=== PATIENT | male | born 1940 | race Caucasian/White ===

== ENCOUNTER 2019-08-17 08:57 | Inpatient (IN) ==
[2019-08-17 09:34] LABS: Basophils # 0.1 K/mcL (0.0-0.2); Basophils % 0.7 %; Eosinophils # 0.2 K/mcL (0.0-0.6); Eosinophils % 2.8 %; Hematocrit 41.2 % (37.5-50.1); Immature Granulocytes % 0.4 % (0-4); Lymphocytes # 1.9 K/mcL (0.6-4.6); Lymphocytes % 27.9 %; Mean Corpuscular HGB Conc 31.6 g/dL (31.6-35.5); Mean Corpuscular Hemoglobin 27.6 pg (28.0-33.3); Mean Corpuscular Volume 87.5 fL (83.0-100.0); Mean Platelet Volume 9.2 fL (9.4-12.4); Monocytes # 0.5 K/mcL (0.0-1.3); Monocytes % 7.1 %; Neutrophils # 4.1 K/mcL (1.6-8.9); Platelet Count 244 K/mcL (140-400); Red Blood Count 4.71 M/mcL (4.19-5.50); Red Cell Distribution Width 13.8 % (11.5-14.5); Segmented Neutrophils % 61.1 %; White Blood Count 6.8 K/mcL (4.3-11.1)
[2019-08-17 09:35] LABS: INR 2.9; Prothrombin Time 32.9 Seconds (9.4-12.1)
[2019-08-17 09:52] LABS: Alanine Aminotransferase 16 Units/L (7-52); Albumin 4.1 g/dL (3.5-5.7); Albumin/Globulin Ratio 1.6 (1.1-2.2); Alkaline Phosphatase 66 Units/L (34-104); Aspartate Amino Transferase 22 Units/L (13-39); BUN/Creatinine Ratio 15 (6-26); Bilirubin,Direct 0.1 mg/dL (0.0-0.2); Bilirubin,Indirect 0.4 mg/dL (0.0-1.0); Bilirubin,Total 0.5 mg/dL (0.3-1.0); Blood Urea Nitrogen 14 mg/dL (8-23); Calcium 9.1 mg/dL (8.6-10.3); Carbon Dioxide 25 mEq/L (23-29); Chloride 107 mEq/L (98-107); Globulin 2.6 g/dL (2.4-3.5); Glucose 130 mg/dL (70-105); Osmolality,Calculated 292 (280-300); Potassium 3.9 mEq/L (3.5-5.1); Sodium 140 mEq/L (136-145); Total Protein 6.7 g/dL (6.4-8.9); eGFR For African Americans > 60 (> 60); eGFR For Non-African Americans > 60 (> 60)
[2019-08-17] MEDS ORDERED: Pantoprazole 40 MG VIAL IVP ONE (10:00)
[2019-08-17] MEDS ORDERED: *HR* Phytonadione 5 MG TABLET PO ONE (11:33)
[2019-08-17] MEDS ORDERED: Naloxone 0.4 MG/ML INJ IVP PRN ×3 (11:34→20:59)
[2019-08-17] MEDS ORDERED: Isovue-370 500 ML BOTTLE IVP ONE (11:45)
[2019-08-17 12:44] LABS: Basophils # 0.1 K/mcL (0.0-0.2); Basophils % 0.6 %; Eosinophils # 0.1 K/mcL (0.0-0.6); Eosinophils % 1.1 %; Hemoglobin 11.7 g/dL (12.9-16.9); Immature Granulocytes % 0.6 % (0-4); Lymphocytes # 1.8 K/mcL (0.6-4.6); Lymphocytes % 20.8 %; Mean Corpuscular HGB Conc 31.6 g/dL (31.6-35.5); Mean Corpuscular Hemoglobin 28.3 pg (28.0-33.3); Mean Corpuscular Volume 89.4 fL (83.0-100.0); Mean Platelet Volume 9.4 fL (9.4-12.4); Monocytes # 0.5 K/mcL (0.0-1.3); Monocytes % 5.5 %; Neutrophils # 6.3 K/mcL (1.6-8.9); Platelet Count 228 K/mcL (140-400); Red Blood Count 4.14 M/mcL (4.19-5.50); Red Cell Distribution Width 13.9 % (11.5-14.5); Segmented Neutrophils % 71.4 %; White Blood Count 8.8 K/mcL (4.3-11.1)
[2019-08-17] MEDS ORDERED: 0.9 % Sodium Chloride 1,000 ML IVC ONE (13:06)
[2019-08-17] MEDS ORDERED: 0.9 % Sodium Chloride 250 ML IVC SCH ×3 (13:15→20:59)
[2019-08-17] MEDS: Pantoprazole 40 MG in 0.9 % Sodium Chloride Mini Bag 100 ML IVC SCH ×3 (13:17→21:25)
[2019-08-17] MEDS: Ringers Solution, Lactated 1,000 ML IVC SCH ×2 (13:18→15:01)
[2019-08-17 13:39] LABS: Hematocrit 36.4 % (37.5-50.1); Hemoglobin 11.2 g/dL (12.9-16.9)
[2019-08-17] MEDS ORDERED: Ondansetron 4 MG/2 ML VIAL IVP ONE (16:27)
[2019-08-17] MEDS ORDERED: SODIUM CHLORIDE/NAHCO3/KCL/PEG 4,000 ML SOLN.RECON PO ONE (17:00)
[2019-08-17] MEDS ORDERED: Pantoprazole 40 MG in 0.9 % Sodium Chloride Mini Bag 100 ML IVC SCH (18:00)
[2019-08-17] MEDS ORDERED: Ringers Solution, Lactated 1,000 ML IVC SCH ×2 (18:00→20:59)
[2019-08-17 18:08] LABS: Hematocrit 23.6 % (37.5-50.1)
[2019-08-17 18:13] LABS: Hemoglobin 7.6 g/dL (12.9-16.9)
[2019-08-17 18:18] LABS: VBG Ionized Calcium 1.12 mmol/L (1.15-1.35)
[2019-08-17] MEDS ORDERED: *HR* Phytonadione 10 MG/ML AMPUL SQ ONE ×2 (18:20→20:59)
[2019-08-17] MEDS ORDERED: *HR* FentaNYL (PF) 100 MCG/2 ML VIAL ONE (18:21)
[2019-08-17] MEDS ORDERED: *HR* Midazolam HCl 2 MG/2 ML VIAL ONE (18:21)
[2019-08-17] MEDS ORDERED: Ketorolac 30 MG/ML VIAL ONE (18:21)
[2019-08-17] MEDS ORDERED: Dexamethasone 4 MG/ML VIAL ONE (18:21)
[2019-08-17] MEDS ORDERED: *HR* Propofol 200 MG/20 ML VIAL IVP ONE (18:21)
[2019-08-17] MEDS ORDERED: Lidocaine -MPF 2% 2 ML VIAL ONE (18:21)
[2019-08-17] MEDS ORDERED: *HR* Rocuronium Bromide 50 MG/5 ML VIAL ONE (18:21)
[2019-08-17] MEDS ORDERED: Ondansetron 4 MG/2 ML VIAL ONE (18:21)
[2019-08-17] MEDS ORDERED: EPHEDrine 50 MG/ML VIAL ONE (18:49)
[2019-08-17] MEDS ORDERED: Albumin Human 5% 12.5 GM/250 ML IV.SOLN ONE (19:43)
[2019-08-17] MEDS ORDERED: *HR* HYDROMORPHONE 2 MG/ML VIAL ONE (19:56)
[2019-08-17] MEDS ORDERED: *HR* FentaNYL (PF) 100 MCG/2 ML VIAL IVP PRN (20:59)
[2019-08-17 22:20] LABS: Hematocrit 28.4 % (37.5-50.1); Hemoglobin 9.3 g/dL (12.9-16.9)
[2019-08-17] MEDS ORDERED: Haloperidol Lactate 5 MG/ML VIAL IVP ONE (23:35)
[2019-08-17] MEDS: Acetaminophen IV 1,000 MG/100 ML INFUS..BTL IVPB SCH (23:53)
[2019-08-17] MEDS: ceFAZolin 2,000 MG in 0.9 % Sodium Chloride 100 ML IVPB SCH (23:54)
[2019-08-18] MEDS ORDERED: Haloperidol Lactate 5 MG/ML VIAL IVP ONE (02:52)
[2019-08-18] MEDS: Pantoprazole 40 MG in 0.9 % Sodium Chloride Mini Bag 100 ML IVC SCH ×2 (02:53→07:54)
[2019-08-18 03:30] LABS: Basophils % 0.1 %; Hematocrit 26.4 % (37.5-50.1); Hemoglobin 8.9 g/dL (12.9-16.9); Immature Granulocytes % 0.4 % (0-4); Lymphocytes # 0.6 K/mcL (0.6-4.6); Mean Corpuscular HGB Conc 33.7 g/dL (31.6-35.5); Mean Corpuscular Hemoglobin 29.5 pg (28.0-33.3); Mean Corpuscular Volume 87.4 fL (83.0-100.0); Mean Platelet Volume 9.5 fL (9.4-12.4); Monocytes # 0.7 K/mcL (0.0-1.3); Monocytes % 4.5 %; Neutrophils # 13.8 K/mcL (1.6-8.9); Platelet Count 121 K/mcL (140-400); Red Blood Count 3.02 M/mcL (4.19-5.50); Red Cell Distribution Width 13.6 % (11.5-14.5); White Blood Count 15.2 K/mcL (4.3-11.1)
[2019-08-18 03:35] LABS: INR 2.5; Prothrombin Time 28.3 Seconds (9.4-12.1)
[2019-08-18 03:49] LABS: Alanine Aminotransferase 11 Units/L (7-52); Albumin 3.3 g/dL (3.5-5.7); Albumin/Globulin Ratio 1.9 (1.1-2.2); Alkaline Phosphatase 42 Units/L (34-104); Aspartate Amino Transferase 19 Units/L (13-39); BUN/Creatinine Ratio 13 (6-26); Bilirubin,Total 1.2 mg/dL (0.3-1.0); Blood Urea Nitrogen 9 mg/dL (8-23); Calcium 7.8 mg/dL (8.6-10.3); Carbon Dioxide 23 mEq/L (23-29); Chloride 107 mEq/L (98-107); Chol/HDL Ratio 2.8 (0-4.9); Cholesterol 108 mg/dL (< 200); Globulin 1.7 g/dL (2.4-3.5); Glucose 169 mg/dL (70-105); HDL Cholesterol 39 mg/dL (40-59); LDL Cholesterol,Calculated 55 mg/dL (0-99); Magnesium 1.5 mg/dL (1.6-2.6); Osmolality,Calculated 291 (280-300); Phosphorous 2.6 mg/dL (2.7-4.5); Potassium 3.6 mEq/L (3.5-5.1); Sodium 139 mEq/L (136-145); Triglycerides 71 mg/dL (< 150); eGFR For African Americans > 60 (> 60); eGFR For Non-African Americans > 60 (> 60)
[2019-08-18] MEDS: Acetaminophen IV 1,000 MG/100 ML INFUS..BTL IVPB SCH ×4 (05:44→23:33)
[2019-08-18] MEDS ORDERED: Pantoprazole 40 MG VIAL IVP SCH (06:00)
[2019-08-18] MEDS ORDERED: *HR* Heparin 5,000 UNIT/ML VIAL SQ SCH (06:00)
[2019-08-18] MEDS: ceFAZolin 2,000 MG in 0.9 % Sodium Chloride 100 ML IVPB SCH ×2 (08:36→16:28)
[2019-08-18] MEDS ORDERED: Metoprolol XL (24 HR) Succ 25 MG TAB.ER.24H PO SCH (09:00)
[2019-08-18 11:55] LABS: Hematocrit 25.7 % (37.5-50.1); Hemoglobin 8.7 g/dL (12.9-16.9)
[2019-08-18] MEDS ORDERED: Naloxone 0.4 MG/ML INJ IVP PRN (17:05)
[2019-08-18] MEDS: *HR* Heparin 5,000 UNIT/ML VIAL SQ SCH (18:53)
[2019-08-18] MEDS: Melatonin 3 MG TABLET PO SCH (20:08)
[2019-08-19] MEDS ORDERED: *HR* LORazepam 2 MG/ML VIAL IVP ONE (02:43)
[2019-08-19] MEDS ORDERED: Haloperidol Lactate 5 MG/ML VIAL IVP ONE (04:18)
[2019-08-19] MEDS: *HR* Heparin 5,000 UNIT/ML VIAL SQ SCH ×2 (04:25→17:31)
[2019-08-19] MEDS: Acetaminophen IV 1,000 MG/100 ML INFUS..BTL IVPB SCH (05:18)
[2019-08-19 08:31] LABS: Basophils % 0.2 %; Eosinophils % 0.1 %; Hematocrit 26.5 % (37.5-50.1); Hemoglobin 8.7 g/dL (12.9-16.9); Immature Granulocytes % 1.2 % (0-4); Lymphocytes # 1.7 K/mcL (0.6-4.6); Lymphocytes % 8.4 %; Mean Corpuscular HGB Conc 32.8 g/dL (31.6-35.5); Mean Corpuscular Hemoglobin 28.7 pg (28.0-33.3); Mean Corpuscular Volume 87.5 fL (83.0-100.0); Mean Platelet Volume 9.7 fL (9.4-12.4); Monocytes # 1.1 K/mcL (0.0-1.3); Monocytes % 5.5 %; Platelet Count 160 K/mcL (140-400); Red Blood Count 3.03 M/mcL (4.19-5.50); Red Cell Distribution Width 14.1 % (11.5-14.5); Segmented Neutrophils % 84.6 %
[2019-08-19 08:42] LABS: BUN/Creatinine Ratio 15 (6-26); Blood Urea Nitrogen 12 mg/dL (8-23); Calcium 8.7 mg/dL (8.6-10.3); Carbon Dioxide 26 mEq/L (23-29); Chloride 108 mEq/L (98-107); Glucose 116 mg/dL (70-105); Magnesium 2.1 mg/dL (1.6-2.6); Osmolality,Calculated 291 (280-300); Phosphorous 1.9 mg/dL (2.7-4.5); Potassium 3.7 mEq/L (3.5-5.1); Sodium 140 mEq/L (136-145); eGFR For African Americans > 60 (> 60); eGFR For Non-African Americans > 60 (> 60)
[2019-08-19] MEDS ORDERED: Pantoprazole 40 MG VIAL IVP SCH (09:00)
[2019-08-19] MEDS: Pantoprazole 40 MG VIAL IVP SCH (09:30)
[2019-08-19] MEDS: Metoprolol XL (24 HR) Succ 25 MG TAB.ER.24H PO SCH (09:30)
[2019-08-19] MEDS ORDERED: Acetaminophen 325 MG TABLET PO PRN (11:33)
[2019-08-19] MEDS ORDERED: *HR* OxyCODONE/APAP 5/325 TABLET PO ONE (11:51)
[2019-08-19 13:04] LABS: Bilirubin,Urine Negative (Negative); Blood,Urine Negative (Negative); Clarity,Urine Clear (Clear); Color,Urine Yellow (Yellow); Glucose,Urine (UA) Normal (Normal); Ketones,Urine Negative (Negative); Leukocyte Esterase,Urine Negative (Negative); Nitrite,Urine Negative (Negative); PH,Urine 7.5 pH Units (5.0-8.0); Protein,Urine Negative (Neg-Trace); Specific Gravity,Urine 1.014 (1.010-1.025); Urobilinogen,Urine Normal (Normal)
[2019-08-19 13:44] LABS: Hematocrit 28.4 % (37.5-50.1); Hemoglobin 9.1 g/dL (12.9-16.9)
[2019-08-19] MEDS ORDERED: QUEtiapine Fumarate 25 MG TABLET PO SCH (21:00)
[2019-08-19] MEDS: Melatonin 3 MG TABLET PO SCH (21:18)
[2019-08-19] MEDS: QUEtiapine Fumarate 25 MG TABLET PO SCH (21:19)
[2019-08-20] MEDS: *HR* Heparin 5,000 UNIT/ML VIAL SQ SCH ×2 (05:19→17:57)
[2019-08-20 06:05] LABS: Basophils % 0.2 %; Eosinophils # 0.1 K/mcL (0.0-0.6); Eosinophils % 0.9 %; Hemoglobin 8.4 g/dL (12.9-16.9); Immature Granulocytes % 0.5 % (0-4); Lymphocytes # 1.8 K/mcL (0.6-4.6); Lymphocytes % 14.5 %; Mean Corpuscular HGB Conc 31.1 g/dL (31.6-35.5); Mean Corpuscular Hemoglobin 28.5 pg (28.0-33.3); Mean Corpuscular Volume 91.5 fL (83.0-100.0); Mean Platelet Volume 9.4 fL (9.4-12.4); Monocytes # 0.7 K/mcL (0.0-1.3); Monocytes % 5.9 %; Neutrophils # 9.6 K/mcL (1.6-8.9); Platelet Count 178 K/mcL (140-400); Red Blood Count 2.95 M/mcL (4.19-5.50); Red Cell Distribution Width 14.2 % (11.5-14.5); White Blood Count 12.2 K/mcL (4.3-11.1)
[2019-08-20 06:23] LABS: BUN/Creatinine Ratio 18 (6-26); Blood Urea Nitrogen 14 mg/dL (8-23); Calcium 8.6 mg/dL (8.6-10.3); Carbon Dioxide 26 mEq/L (23-29); Chloride 110 mEq/L (98-107); Glucose 101 mg/dL (70-105); Magnesium 2.2 mg/dL (1.6-2.6); Osmolality,Calculated 295 (280-300); Phosphorous 2.8 mg/dL (2.7-4.5); Potassium 3.8 mEq/L (3.5-5.1); Sodium 142 mEq/L (136-145); eGFR For African Americans > 60 (> 60); eGFR For Non-African Americans > 60 (> 60)
[2019-08-20] MEDS: Pantoprazole 40 MG VIAL IVP SCH (09:27)
[2019-08-20] MEDS: Metoprolol XL (24 HR) Succ 25 MG TAB.ER.24H PO SCH (09:27)
[2019-08-20] MEDS: Melatonin 3 MG TABLET PO SCH (21:32)
[2019-08-20] MEDS: QUEtiapine Fumarate 25 MG TABLET PO SCH (21:32)
[2019-08-21 04:09] LABS: Basophils % 0.2 %; Eosinophils # 0.3 K/mcL (0.0-0.6); Eosinophils % 3.4 %; Hematocrit 25.6 % (37.5-50.1); Hemoglobin 8.1 g/dL (12.9-16.9); Immature Granulocytes % 0.8 % (0-4); Lymphocytes # 1.6 K/mcL (0.6-4.6); Lymphocytes % 18.3 %; Mean Corpuscular HGB Conc 31.6 g/dL (31.6-35.5); Mean Corpuscular Hemoglobin 28.8 pg (28.0-33.3); Mean Corpuscular Volume 91.1 fL (83.0-100.0); Mean Platelet Volume 9.3 fL (9.4-12.4); Monocytes # 0.5 K/mcL (0.0-1.3); Monocytes % 5.4 %; Neutrophils # 6.2 K/mcL (1.6-8.9); Platelet Count 194 K/mcL (140-400); Red Blood Count 2.81 M/mcL (4.19-5.50); Red Cell Distribution Width 13.9 % (11.5-14.5); Segmented Neutrophils % 71.9 %; White Blood Count 8.6 K/mcL (4.3-11.1)
[2019-08-21 04:30] LABS: BUN/Creatinine Ratio 14 (6-26); Blood Urea Nitrogen 9 mg/dL (8-23); Calcium 8.1 mg/dL (8.6-10.3); Carbon Dioxide 28 mEq/L (23-29); Chloride 107 mEq/L (98-107); Glucose 97 mg/dL (70-105); Magnesium 1.8 mg/dL (1.6-2.6); Osmolality,Calculated 291 (280-300); Potassium 3.3 mEq/L (3.5-5.1); Sodium 141 mEq/L (136-145); eGFR For African Americans > 60 (> 60); eGFR For Non-African Americans > 60 (> 60)
[2019-08-21] MEDS: *HR* Heparin 5,000 UNIT/ML VIAL SQ SCH (05:27)
[2019-08-21] MEDS ORDERED: Potassium Chloride Elixir 20 MEQ/15 ML UDC PO ONE (07:52)
[2019-08-21] MEDS: Metoprolol XL (24 HR) Succ 25 MG TAB.ER.24H PO SCH (08:35)
[2019-08-21] MEDS: Pantoprazole 40 MG VIAL IVP SCH (08:36)
[2019-08-21] MEDS: QUEtiapine Fumarate 25 MG TABLET PO SCH (21:31)
[2019-08-21] MEDS: Melatonin 3 MG TABLET PO SCH (21:31)
[2019-08-22 06:44] LABS: Hematocrit 23.6 % (37.5-50.1); Hemoglobin 7.6 g/dL (12.9-16.9)
[2019-08-22 07:05] LABS: BUN/Creatinine Ratio 13 (6-26); Blood Urea Nitrogen 9 mg/dL (8-23); Calcium 8.3 mg/dL (8.6-10.3); Carbon Dioxide 29 mEq/L (23-29); Chloride 108 mEq/L (98-107); Glucose 114 mg/dL (70-105); Magnesium 1.9 mg/dL (1.6-2.6); Osmolality,Calculated 294 (280-300); Potassium 3.2 mEq/L (3.5-5.1); Sodium 142 mEq/L (136-145); eGFR For African Americans > 60 (> 60); eGFR For Non-African Americans > 60 (> 60)
[2019-08-22] MEDS: Metoprolol XL (24 HR) Succ 25 MG TAB.ER.24H PO SCH (09:45)
[2019-08-22] MEDS: Pantoprazole 40 MG VIAL IVP SCH (09:46)
[2019-08-22 11:01] VITALS: BP 125/81
[2019-08-22 12:08] LABS: Hematocrit 29.7 % (37.5-50.1)
[2019-08-22 12:11] LABS: Hemoglobin 9.2 g/dL (12.9-16.9)
== END 2019-08-22 15:39 | disposition home or self-care (01) | DRG 330 ==
LOC: EMEROOARM 08:57 → 3BNU 08:57 → ICNU 15:14 → SUATTDRO 20:28 → 3ANU 08-18 18:05
PROVIDERS: ADMIT Internal Medicine; ATTEND Internal Medicine

== ENCOUNTER 2021-06-25 15:41 | Observation (INO) ==
[2021-06-25] MEDS ORDERED: Ketorolac 30 MG/ML VIAL IVP STA (16:17)
[2021-06-25 17:44] LABS: Basophils % 0.3 %; Eosinophils % 0.2 %; Hematocrit 45.1 % (37.5-50.1); Hemoglobin 14.3 g/dL (12.9-16.9); Immature Granulocytes % 0.5 % (0-4); Lymphocytes # 1.4 K/mcL (0.6-4.6); Lymphocytes % 10.6 %; Mean Corpuscular HGB Conc 31.7 g/dL (31.6-35.5); Mean Corpuscular Hemoglobin 27.6 pg (28.0-33.3); Mean Corpuscular Volume 86.9 fL (83.0-100.0); Mean Platelet Volume 9.4 fL (9.4-12.4); Monocytes # 0.8 K/mcL (0.0-1.3); Monocytes % 6.4 %; Neutrophils # 10.4 K/mcL (1.6-8.9); Platelet Count 216 K/mcL (140-400); Red Blood Count 5.19 M/mcL (4.19-5.50); Red Cell Distribution Width 14.3 % (11.5-14.5); White Blood Count 12.7 K/mcL (4.3-11.1)
[2021-06-25 17:50] LABS: Alanine Aminotransferase 14 Units/L (7-52); Albumin 4.4 g/dL (3.5-5.7); Albumin/Globulin Ratio 1.6 (1.1-2.2); Alkaline Phosphatase 67 Units/L (34-104); Aspartate Amino Transferase 23 Units/L (13-39); BUN/Creatinine Ratio 13 (6-26); Bilirubin,Total 1.5 mg/dL (0.3-1.0); Blood Urea Nitrogen 13 mg/dL (8-23); Calcium 9.8 mg/dL (8.6-10.3); Carbon Dioxide 29 mEq/L (23-29); Chloride 105 mEq/L (98-107); Globulin 2.7 g/dL (2.4-3.5); Glucose 107 mg/dL (70-105); Osmolality,Calculated 289 (280-300); Sodium 139 mEq/L (136-145); Total Protein 7.1 g/dL (6.4-8.9); eGFR For African Americans > 60 (> 60); eGFR For Non-African Americans > 60 (> 60)
[2021-06-25 17:54] LABS: Troponin I 0.07 ng/mL (< 0.04)
[2021-06-25] MEDS ORDERED: *HR* HYDROcodone/Acet 5/325 mg TABLET PO PRN (22:12)
[2021-06-25] MEDS ORDERED: Naloxone 0.4 MG/ML INJ IVP PRN (22:12)
[2021-06-25] MEDS ORDERED: *HR* OxyCODONE Immed Rel 5 MG TABLET PO PRN (22:12)
[2021-06-25] MEDS ORDERED: Ondansetron ODT 4 MG TAB.RAPDIS SL PRN (22:12)
[2021-06-25] MEDS ORDERED: Melatonin 3 MG TABLET PO PRN (22:12)
[2021-06-25] MEDS ORDERED: Acetaminophen 325 MG TABLET PO PRN (22:12)
[2021-06-25] MEDS ORDERED: Nitroglycerin 0.4 MG TAB.SUBL SL PRN (22:19)
[2021-06-26] MEDS: 0.9 % Sodium Chloride 1,000 ML IVC SCH ×2 (00:48→19:19)
[2021-06-26 02:29] LABS: Hemoglobin 13.2 g/dL (12.9-16.9); Mean Corpuscular HGB Conc 32.2 g/dL (31.6-35.5); Mean Corpuscular Hemoglobin 27.7 pg (28.0-33.3); Mean Corpuscular Volume 86.1 fL (83.0-100.0); Mean Platelet Volume 8.8 fL (9.4-12.4); Platelet Count 177 K/mcL (140-400); Red Blood Count 4.76 M/mcL (4.19-5.50); Red Cell Distribution Width 14.2 % (11.5-14.5); White Blood Count 9.3 K/mcL (4.3-11.1)
[2021-06-26 02:50] LABS: BUN/Creatinine Ratio 15 (6-26); Blood Urea Nitrogen 14 mg/dL (8-23); Calcium 9.4 mg/dL (8.6-10.3); Carbon Dioxide 27 mEq/L (23-29); Chloride 106 mEq/L (98-107); Chol/HDL Ratio 2.3 (0-4.9); Cholesterol 143 mg/dL (< 200); Glucose 93 mg/dL (70-105); HDL Cholesterol 62 mg/dL (40-59); LDL Cholesterol,Calculated 68 mg/dL (< 100); Osmolality,Calculated 292 (280-300); Phosphorous 3.2 mg/dL (2.7-4.5); Potassium 3.6 mEq/L (3.5-5.1); Sodium 141 mEq/L (136-145); Triglycerides 67 mg/dL (< 150); eGFR For African Americans > 60 (> 60); eGFR For Non-African Americans > 60 (> 60)
[2021-06-26 03:03] LABS: Thyroid Stimulating Hormone 2.905 mcIU/mL (0.340-5.600)
[2021-06-26] MEDS: QUEtiapine Fumarate 25 MG TABLET PO SCH ×2 (03:33→21:25)
[2021-06-26 03:36] LABS: Estimated Average Glucose 111 mg/dl; Hemoglobin A1C 5.5 %
[2021-06-26] MEDS: Aspirin 81 MG TAB.CHEW PO SCH (10:07)
[2021-06-26] MEDS: Metoprolol XL (24 HR) Succ 25 MG TAB.ER.24H PO SCH (14:59)
[2021-06-26] MEDS ORDERED: *HR* Rivaroxaban 10 MG TABLET PO SCH (17:00)
[2021-06-27 07:51] VITALS: BP 139/86; PULSE 100; TEMP 9735; O2SAT 95
[2021-06-27] MEDS: Aspirin 81 MG TAB.CHEW PO SCH (08:07)
[2021-06-27] MEDS: Metoprolol XL (24 HR) Succ 25 MG TAB.ER.24H PO SCH (08:07)
== END 2021-06-27 12:10 | disposition home or self-care (01) ==
LOC: 3BNU 15:41 → EMEROOARM 15:41 → SUATTDRO 22:11 → 3BNU 22:56
PROVIDERS: ADMIT Internal Medicine; ATTEND Nurse Practitioner